=== PATIENT | female | born 1945 | race Caucasian/White ===

== ENCOUNTER 2019-06-12 14:06 | Emergency (ER) ==
[2019-06-12 14:13] VITALS: BP 116/69; TEMP 96.2; BMI 23.3
--- NOTE | 2019-06-12 16:02 | CT ---
Exam: CT of the chest without intravenous contrast. Comparison: Chest x-ray performed 01/30/2019. Reason for exam: Breast nodule. FINDINGS: No pleural effusion, or focal consolidation in the partially imaged lung bases. There is a 1.7 cm nodule in the left medial anterior chest subcutaneous fat on axial image number 36. Operative changes are seen after midline sternotomy and valvuloplasty. Atherosclerotic disease is seen within the aorta and distal arterial vasculature. The aorta is prominent in size measuring 4.5 cm at the level of the arch. Similar appearing compression deformity in the L1 vertebral body. Nodularity is seen in the right thyroid lobe. Impression: 1. 1.8 cm nodule in the subcutaneous fat of the left anterior chest wall on axial image number 36. Recommend further evaluation as neoplasia could have this appearance. 2. Operative changes after midline sternotomy and cardiomegaly with aneurysmal dilatation of the asc ending aorta measuring 4.5 cm. 3. Dense atherosclerotic disease. 4. Thyroid nodularity. Recommend ultrasound of the thyroid for further characterization. 5. Similar appearing compression deformity in the L1 vertebral body
--- NOTE | 2019-06-12 16:53 | ED.PDOC ---
General ED Provider: Dr. NIKHIL MENDOZA Chief Complaint: Non-specific Complaint Stated Complaint: pt noted a mass/nodule left anterior chest wall / breast today. denied weight loss no prior mamogram history offered by the pt Time Seen by Physician: 14:14 (seen with french johnson ) Mode of Arrival: Walk-In Information Source: Patient Exam Limitations: No limitations Primary Care Provider: MAVIS DANGELO Nursing and Triage Documentation Reviewed and Agree: No Does patient meet sepsis criteria?: No System Inflammatory Response Syndrome: Not Applicable Sepsis Protocol: For patient's 13 years and over: Temp is 96.8 and below OR 101 and greater Pulse >90 BPM Resp >20/minute Acutely Altered Mental Status Are patient's symptoms suggestive of a new infection, such as: -Pneumonia -Skin, Soft Tissue -Endocarditis -UTI -Bone, Joint Infection -Implantable Device -Acute Abdominal Infection -Wound Infection -Meningitis -Blood Stream Catheter Infection -Unknown Miscellaneous Complaint Exam - Complex/Multi-System Complaint/Exam Onset/Duration: today . pt is pain free no berenice hx offered Symptoms Are: Still present Current Severity: None (in terms of pain) Associated Signs and Symptoms: Denies: Decreased responsiveness, Confusion, Agitation, Dizziness, Weakness, Syncope, Headache, Short of air, Cough, Wheezing , Hemoptysis, Chest pain, Palpitations, Edema, Nausea, Vomiting, Diarrhea, Abdominal pain, Back pain, Dysuria, Hematemesis, Melena, Decreased oral intake, Fever, Diaphoresis, Immunocompromised, Anticoagulation Therapy, Recent medication changes, Indwelling medical observer, Prior MRSA, Prior VRE, Recent trauma, Remote trauma Recent Echo/LV Function: No Respiratory Distress: None JVD Present: No Tachypnea Present: No Stridor Present: No Abdominal Findings: Present: Normal findings Glascow Coma Scale (see protocol): 15 Focal Weakness: Present: None Focal Sensory Loss: Present: None Gait: Normal Gag Reflex Present: Yes Skin Findings: Present: Normal findings Differential Diagnosis: Other (breast mass versus mets to chest wall, vs fatyyy tumor) Review of Systems - Review Of Systems Constitutional: Reports: No symptoms Eyes: Reports: No symptoms Ears, Nose, Mouth, Throat: Reports: No symptoms Respiratory: Reports: No symptoms Cardiac: Reports: No symptoms GI: Reports: No symptoms : Reports: No symptoms Musculoskeletal: Reports: No symptoms Skin: Reports: No symptoms Neurological: Reports: No symptoms Endocrine: Reports: No symptoms Hematologic/Lymphatic: Reports: No symptoms All Other Systems: Reviewed and Negative Past Medical History - Past Medical History Previously Healthy: Yes Endocrine: Reports: DM 2, Dyslipidemia Cardiovascular: Reports: Hypertension Respiratory: Reports: None Hematological: Reports: None Gastrointestinal: Reports: GERD Genitourinary: Reports: None Neuro/Psych: Reports: None Musculoskeletal: Reports: None Cancer: Reports: None Last Menstrual Period: n/a - Surgical History General Surgical History: Reports: None - Family History Family History: Reports: None - Social History Smoking Status: Former smoker Hx Substance Use: No Alcohol Screening: None Physical Exam - Physical Exam Appearance: Well-appearing, No pain distress, Well-nourished Eyes: VERENA, EOMI, Conjunctiva clear ENT: Ears normal, Nose normal, Oropharynx normal Respiratory: Airway patent, Breath sounds clear, Breath sounds equal, Respirations nonlabored Cardiovascular: RRR, Pulses normal, No rub, No murmur GI/: Soft, Nontender, No masses, Bowel sounds normal, No Organomegaly Musculoskeletal: Normal strength (palpation of the chest wall noted to be postive for subQ nodule ), ROM intact, No edema, No calf tenderness Skin: Warm, Dry, Normal color Neurological: Sensation intact, Motor intact, Reflexes intact, Cranial nerves intact, Alert, Oriented Psychiatric: Affect appropriate, Mood appropriate Interpretation - Radiology Interpretation Radiology Interpretation By: Radiologist Radiology Results: Positive (SUBQ NODULE , THYROID NODULE) Re-Evaluation - Re-Evaluation Time of Re-Evaluation: 16:56 Status: Unchanged Vital Signs Stable: Yes Pain Level: 0 Appearance: NAD Lungs: Clear Skin: Warm and Dry Neuro: Alert and Oriented X3 CV: RRR Additional Comments: REPORTS OF THRYROID NODULE AND CHEST WALL NODULE GIVEN TO THE PT Critical Care Note - Critical Care Note Total Time (mins): 0 Course - Course Orders, Labs, Meds: Orders Category Date Time Status CT CHEST W/O CONTRAST Stat RADS 06/12/19 14:55 Completed Vital Signs: Temp Pulse Resp BP Pulse Ox 06/12/19 14:07 96.2 F L 92 H 18 116/69 97 Departure - Departure Time of Disposition: 16:57 Disposition: HOME SELF-CARE Discharge Problem: Breast nodule, Thyroid nodule Instructions: Thyroid Nodules (ED), Breast Mass (ED) Condition: Good Pt referred to PMD for follow-up: Yes IPMP verified?: No Additional Instructions: Please call your Family Physician as soon as possible to schedule a follow-up appointment. YOU DO HAVE A THROID NODULE AND BREAST VERSUS A CHEST WALL NODULE. THESE NODULES MUST BE WORKED UP BY YOUR PROVIDER. FAILURE TO FOLLOW UP UPON THESE INFORMATION MAY RESULT IN CANCER AND . ALSO DISCUSS A MAMOGRAM WITH YOUR DOCTOR LISSA Allergies/Adverse Reactions: Allergies latex Adverse Reaction (Verified 06/12/19 14:22) metronidazole [From Flagyl] Adverse Reaction (Verified 06/12/19 14:22) promethazine [From Phenergan] Adverse Reaction (Verified 06/12/19 14:22) NASIDS Adverse Reaction (Uncoded 06/12/19 14:22) Home Medications: Ambulatory Orders Aspirin [Aspirin EC] 81 mg PO DAILY 06/12/19 Bumetanide 2 mg PO DAILY 06/12/19 Duloxetine HCl 60 mg PO DAILY 06/12/19 Ergocalciferol (Vitamin D2) [Vitamin D2] 50,000 units PO MONTHLY 06/12/19 Furosemide 80 mg PO BID PRN 06/12/19 Insulin Detemir [Levemir] 10 units SQ BEDTIME 06/12/19 Metoprolol Succinate 0.5 mg PO DAILY 06/12/19 Pantoprazole Sodium [Protonix] 40 mg PO DAILY 06/12/19 Pravastatin Sodium [Pravachol] 20 mg PO DAILY 06/12/19 Sacubitril/Valsartan [Entresto 49 mg-51 mg Tablet] 1 tab PO DAILY 06/12/19 Ticagrelor [Brilinta] 90 mg PO BID 06/12/19
== END 2019-06-12 17:11 | disposition home or self-care (01) ==
LOC: ED 14:06
DX: N63.20 Unspecified lump in the left breast, unspecified quadrant (principal); E04.1 Nontoxic single thyroid nodule
CPT/HCPCS: 99282

== ENCOUNTER 2019-06-26 09:55 | Outpatient (CLI) ==
--- NOTE | 2019-06-26 10:55 | MAMMO ---
EXAM: Bilateral digital diagnostic mammogram (2-D and 3-D) History: Left breast mass. Findings: MLO and CC views of bilateral breasts demonstrate scattered fibroglandular breast parenchy ma. There is a 2 cm mass within the lower inner quadrant of the left breast posterior depth demonstr ating irregular margins. Benign bilateral vascular calcifications. Impression: 2 cm left breast mass is indeterminate. Recommend further evaluation with ultrasound. BI-RADS 0, incomplete. Further evaluation is needed
--- NOTE | 2019-06-26 11:24 | US ---
EXAM: Left breast ultrasound. History: Left breast mass. Comparison: Bilateral diagnostic mammogram 06/26/2019 technique: Multiple sonographic images throug h the left breast were obtained. Color duplex Doppler was used to interrogate vascular flow. Findings: At 3 o'clock 10 cm from the nipple there is a 2 cm irregular mass with spiculated margins. This correlates with mammography. A few benign left axillary lymph nodes are seen demonstrating fa tty hilum. Impression: 3 o'clock left breast mass is suspicious for malignancy. Recommend ultrasound guided bi opsy BI-RADS 4, suspicious abnormality
--- NOTE | 2019-06-26 13:46 | US ---
EXAM: Thyroid ultrasound History: Thyroid nodules. Technique: Multiple sonographic images through the thyroid gland were obtained. Color duplex Dopple r was used to interrogate vascular flow. Findings: The right lobe of the thyroid measures 4.3 cm x 2.3 cm x 1.6 cm demonstrates multiple nodules with th e largest being solid and measuring 1.7 cm. The thyroid isthmus measures 0.5 cm in thickness. The left lobe of the thyroid measures 2.9 cm x 0.9 cm x 1.0 cm and demonstrates a 0.6 cm solid nodule . No extrathyroidal masses identified. Impression: A dominant 1.7 cm solid nodule within the right thyroid lobe. Recommend tissue sampling .
== END 2019-06-26 09:56 | disposition home or self-care (01) ==
LOC: RAD 09:55
PROVIDERS: ATTEND Physician Assistant
DX: N63.23 Unspecified lump in the left breast, lower outer quadrant (principal); E04.1 Nontoxic single thyroid nodule